=== PATIENT | female | born 1975 | race Caucasian/White ===

== ENCOUNTER 2020-10-16 06:02 | Emergency (ER) | payer OTHER ==
[2020-10-16 06:14] VITALS: BP 128/94; PULSE 78; TEMP 98.6; BMI 29.2
[2020-10-16] MEDS ORDERED: MAG HYDROX/AL HYDROX/SIMETH 30 ML UNIT-DOSE CUP PO ONE (07:32)
[2020-10-16] MEDS ORDERED: MAG HYDROX/AL HYDROX/SIMETH 30 ML UNIT-DOSE CUP ONE (08:44)
[2020-10-16 09:51] LABS: PH,URINE 5.5 (5.0-8.0); URINE APPEARANCE CLOUDY; URINE BILIRUBIN NEGATIVE (NEGATIVE); URINE COLOR YELLOW; URINE GLUCOSE (UA) NEGATIVE (NEGATIVE); URINE KETONE NEGATIVE (NEGATIVE); URINE LEUK ESTERASE NEGATIVE (NEGATIVE); URINE NITRITE NEGATIVE (NEGATIVE); URINE PROTEIN NEGATIVE (NEGATIVE)
[2020-10-16 09:53] LABS: BASO % 1.8 % (0-2.0); HEMATOCRIT 29.3 % (32.4-45.2); HEMOGLOBIN 8.9 GM/dL (10.7-15.3); MCH 21.6 pg (25.7-33.7); MCHC 30.2 g/dl (32.0-36.0); MEAN CELL VOLUME 71.6 fl (80-96); MEAN PLT VOLUME 8.9 fl (7.5-11.1); MONO % 9.6 % (3.8-10.2); NEUT % 51.6 % (42.8-82.8); PLATELET COUNT 521 K/MM3 (134-434); RDW 20.9 % (11.6-15.6); WHITE BLOOD COUNT 5.4 K/mm3 (4.0-10.0)
[2020-10-16 10:19] LABS: CHLORIDE 107 mmol/L (98-107); POTASSIUM 4.7 mmol/L (3.5-5.1); SODIUM 139 mmol/L (136-145)
[2020-10-16 10:21] LABS: CALCIUM 8.8 mg/dL (8.5-10.1)
[2020-10-16 10:22] LABS: ALBUMIN 3.6 g/dl (3.4-5.0); ANION GAP 4 MMOL/L (8-16); BLOOD UREA NITROGEN 11.1 mg/dL (7-18); CO2 28 mmol/L (21-32); GLUCOSE,RANDOM 85 mg/dL (74-106)
[2020-10-16 10:23] LABS: LIPASE 300 U/L (73-393)
[2020-10-16 10:25] LABS: CREATININE 0.6 mg/dL (0.55-1.3); SGOT/AST 25 U/L (15-37); SGPT/ALT 19 U/L (13-61)
[2020-10-16 10:26] LABS: BILIRUBIN,TOTAL 0.4 mg/dL (0.2-1)
[2020-10-16 10:27] LABS: TOT PROT 6.9 g/dl (6.4-8.2)
[2020-10-16 10:28] LABS: ALK PHOS 63 U/L (45-117)
[2020-10-16 12:21] LABS: ANISOCYTOSIS 1+; MACROCYTOSIS 0; PLATELET ESTIMATE INCREASED
== END 2020-10-16 16:15 | disposition home or self-care (01) ==
LOC: JER 06:02
DX: R10.13 Epigastric pain (principal)
CPT/HCPCS: 36415; 74177-TC; 80053; 81003; 82550; 83690; 84484; 84703; 85025; 93005; 93010; 99285-25; Q9967

== ENCOUNTER 2024-03-17 17:26 | Emergency (ER) | payer OTHER ==
[2024-03-17 17:40] VITALS: BP 114/69; PULSE 83; RESP 18; TEMP 98.5; BMI 32.2
[2024-03-17] MEDS ORDERED: KETOROLAC TROMETHAMINE 30 MG/1 ML VIAL ONE (18:45)
[2024-03-17] MEDS: KETOROLAC TROMETHAMINE 30 MG/1 ML VIAL IM ONE (18:48)
== END 2024-03-17 20:08 | disposition home or self-care (01) ==
LOC: JERFT 17:26
PROC: 3E023GC Introduction of Other Therapeutic Substance into Muscle, Percutaneous Approach (ICD-10-PCS; principal; 2024-03-17)
DX: M25.562 Pain in left knee (principal); W01.0XXA Fall on same level from slipping, tripping and stumbling without subsequent striking against object, initial encounter; Y99.0 Civilian activity done for income or pay
CPT/HCPCS: 73562-TC-LT-FY; 99284-25